=== PATIENT | female | born 1945 | race Caucasian/White ===

== ENCOUNTER → 2017-03-16 | Outpatient (CLI) | payer OTHER ==
[~2017-03-16] MED LIST: BENICAR20 MG PO; HYDROCHLOROTH12.5 M1 PO; LIPITOR10 MG PO; LOPRESSOR50 PO; OCUVITE TABLET1 EAC1 PO; PRESERVISION T1 EACH PO; PREVACID30 MG PO; RANITIDINE HCL300 M1 PO; TOPROL XL50 MG PO
--- NOTE | 2017-03-29 21:49 | ONC ---
[place] [id number] RADIATION ONCOLOGY NOTE Name: ESTRELLAMORRIS Room: [facility]#: [id number] Admission: 03/16/17 Attend Phys: Adryan Euceda MD Discharge: Date of : 45 Report #: [id number] THIS REPORT FOR: //name// CC: Adryan Stern MD DATE OF SERVICE: 03/16/2017 REFERRING PHYSICIANS: Include Jef Ferguson MD. as well as Dr. Rivera, and Delilah Stern MD. [facility] phone is [phone]. 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 She completed her radiation therapy on 06/21/2014. She discussed antiestrogen medications with Dr. Stern and the decision was made not to take antiestrogen medications. INTERVAL NOTE: The patient denied having any nipple discharge from the right breast. She denied having any nipple discharge from the left breast. She denied having any suspicious palpable masses involving the right breast. She denied having any suspicious palpable masses involving the left breast. She denied having any upper extremity edema. MEDICATIONS: Include metoprolol, Zantac, hydrochlorothiazide, lansoprazole, Benicar, atorvastatin, PreserVision, vitamin D and vitamin B12. SOCIAL HISTORY: The patient is retired from [employer]. Cigarettes: She does not smoke cigarettes. REVIEW OF SYSTEMS: RESPIRATORY: Breathing is baseline. She was not short of breath. MUSCULOSKELETAL: She had good range of motion of her upper extremities. PHYSICAL EXAMINATION: With my nurse, Shanta Deng, present: VITAL SIGNS: The patient weighed 206.2 pounds on 03/16/2017. She was 205.2 pounds on 03/17/2016. On 03/16/2017, blood pressure was 156/85, pulse 62, respirations 18. LYMPH NODES: She had no palpable cervical, supraclavicular or axillary lymphadenopathy. HEART: Had a regular rate and rhythm without murmur. LUNGS: [place] [id number] RADIATION ONCOLOGY NOTE Name: MORRIS DE LA ROSA Room: [facility]#: [id number] Admission: 03/16/17 Attend Phys: Adryan Euceda MD Discharge: Date of : 45 Report #: [id number] BREASTS: Right breast had no suspicious palpable masses. Left breast had no suspicious palpable masses. ABDOMEN: Not tender. Spleen was not palpable. Liver was at the costal margin. RADIOLOGIC DATA: From 02/14/2017 showed benign findings on a bilateral mammogram. ASSESSMENT AND PLAN: 1. History of right breast ductal carcinoma in situ- There is no evidence of breast cancer at this time. The patient continues to follow up with her medical oncologist, Dr. Stern, and her surgeon, Dr. Rivera. The patient was given a requisition for a bilateral mammogram in 01/2018. She was asked to schedule a follow up appointment to see me afterwards. 2. Hypertension- The patient takes metoprolol and hydrochlorothiazide and that is managed by referring physicians. 3. Hyperlipidemia- The patient takes atorvastatin and that is managed by her referring physicians. Thank you for allowing me to participate in the care of this patient. <ELECTRONICALLY SIGNED> By: Adryan Euceda MD 03/29/17 [id number] Euceda MD /nt
== END ==
LOC: M.RTH 03-02 09:30
DX: Z08 Encounter for follow-up examination after completed treatment for malignant neoplasm (principal); I10 Essential (primary) hypertension; E78.5 Hyperlipidemia, unspecified; Z85.3 Personal history of malignant neoplasm of breast

== ENCOUNTER → 2017-04-25 | Outpatient (CLI) | payer OTHER | LOC: M.RAD 17:19 | DX: I10 Essential (primary) hypertension (principal); M47.894 Other spondylosis, thoracic region; J98.11 Atelectasis; Q79.1 Other congenital malformations of diaphragm ==